=== PATIENT | female | born 1995 | race Caucasian/White ===

== ENCOUNTER 2016-11-02 08:34 | Day surgery (SDC) | payer BC ==
[~2016-11-02] VITALS: Ht 162.6 cm; Wt 68.0 kg
[2016-11-02 08:58] VITALS: O2SAT 98
[2016-11-02] MEDS ORDERED: SEVOFLURANE 15 MIN GAS INH ONE (10:20)
[2016-11-02] MEDS ORDERED: PROPOFOL 200MG/ 20ML VIAL (DIPRIVAN) IV ONE (10:20)
[2016-11-02] MEDS ORDERED: LR 1,000 ML IV.SOLN IV ONE (10:20)
[2016-11-02] MEDS ORDERED: MIDAZOLAM HCL 5 MG/5 ML VIAL IVP ONE (10:20)
[2016-11-02] MEDS ORDERED: NS IRRIG SOLN 1000 ML IR ONE (10:20)
[2016-11-02] MEDS ORDERED: fentaNYL CITRATE/PF 100 MCG/2 ML AMP IVP ONE (10:20)
[2016-11-02] MEDS ORDERED: ONDANSETRON HCL 4 MG/2 ML VIAL IVP ONE (10:20)
[2016-11-02] MEDS ORDERED: LR 1,000 ML IV SCH (10:50)
[2016-11-02] MEDS ORDERED: ONDANSETRON HCL 4 MG/2 ML VIAL IVP PRN (11:00)
[2016-11-02] MEDS ORDERED: MEPERIDINE HCL/PF 25 MG/ML DISP.SYRIN IVP PRN ×2 (11:00)
[2016-11-02] MEDS ORDERED: MEPERIDINE HCL/PF 50 MG/ML AMP IVP PRN ×4 (11:00)
[2016-11-02] MEDS ORDERED: METOCLOPRAMIDE HCL 10 MG/2 ML VIAL IVP PRN (11:00)
[2016-11-02] MEDS ORDERED: OXYCODONE/ACETAMINOPHEN 5-325 TABLET PO PRN ×2 (11:00)
[2016-11-02] MEDS ORDERED: PROMETHAZINE HCL 25 MG/ML AMP IM PRN ×2 (11:00)
[2016-11-02 11:50] VITALS: BP 116/80; PULSE 83; RESP 16
[2016-11-02] MEDS ORDERED: HYDROcodone/ACETAMIN 5-325 MG TAB (NORCO/ VICODIN) ONE (13:29)
== END 2016-11-02 13:45 | disposition home or self-care (01) ==
LOC: SDS 08:34 → SMU 08:36 → SDS 13:45
PROVIDERS: ATTEND Obstetrics & Gynecology
DX: N92.0 Excessive and frequent menstruation with regular cycle (principal)
CPT/HCPCS: 36415; 58300; 58558; 86886; 86900; 86901; 88305; J2250; J2405; J2704; J3010; J7120

== ENCOUNTER 2023-12-21 23:15 | Emergency (ER) | payer BC ==
[~2023-12-21] VITALS: Ht 162.6 cm; Wt 90.7 kg
[2023-12-21 23:36] VITALS: BP_SYST 142; PULSE 88; RESP 16; TEMP 98.1; O2SAT 94
[2023-12-22] MEDS: KETOROLAC TROMETHAMINE 30 MG VIAL IVP ONE (03:26)
[2023-12-22] MEDS: METOCLOPRAMIDE HCL 10 MG/2 ML VIAL IVP ONE (03:26)
[2023-12-22] MEDS: ACETAMINOPHEN 500 MG TABLET PO ONE (03:27)
[2023-12-22] MEDS: NACL 0.9% 1,000 ML IV ONE (03:28)
[2023-12-22 03:29] LABS: BASOPHILS % (AUTO) 0.5 % (0.0-2.0); EOSINOPHILS # (AUTO) 0.1 K/uL (0.0-0.4); HEMOGLOBIN 14.8 g/dL (12.0-16.0); MEAN CORPUSCULAR HEMOGLOBIN 32 pg (27-31)
[2023-12-22 03:36] LABS: EOSINOPHILS % (AUTO) 1.3 % (0.0-4.0); HEMATOCRIT 42.7 % (36-48); LYMPHOCYTES # (AUTO) 2.3 K/uL (1.0-5.5); LYMPHOCYTES % (AUTO) 25.2 % (20.5-51.5); MEAN CORPUSCULAR HGB CONC 35 % (32-36); MEAN CORPUSCULAR VOLUME 91 fL (79.0-98.0); MONOCYTES # (AUTO) 0.6 K/uL (0.0-1.0); NEUTROPHILS # (AUTO) 6.2 K/uL (1.8-7.7); PLATELET COUNT (AUTO) 485 K/uL (130-430); RED BLOOD CELL COUNT(AUTO) 4.72 MIL/uL (4.2-6.2); RED CELL DISTRIBUTION WIDTH 12.8 % (9.0-15.0); WHITE BLOOD COUNT (AUTO) 9.3 K/uL (4.8-10.8)
[2023-12-22 03:48] LABS: CALCIUM 8.7 mg/dL (8.4-11.0); CREATININE 0.77 mg/dL (0.55-1.30); POTASSIUM 3.9 mmol/L (3.5-5.1)
[2023-12-22] MEDS ORDERED: ONDA-8 TL (04:59)
[2023-12-22 05:10] VITALS: BP_SYST 145; PULSE 85; RESP 18; TEMP 97.7; O2SAT 97
== END 2023-12-22 05:10 | disposition home or self-care (01) ==
LOC: SED 23:15
DX: G43.909 Migraine, unspecified, not intractable, without status migrainosus (principal)
CPT/HCPCS: 99284; 96374; 96361; 96375; 80048; 85025; 36415; 81025; J1885; J2765